=== PATIENT | female | born 1940 | race Caucasian/White ===

== ENCOUNTER 2023-05-10 09:35 | Day surgery (SDC) | payer MEDICARE, OTHER ==
[2023-05-08 11:41] LABS: BILIRUBIN,URINE NEGATIVE (Neg); CLARITY,URINE CLEAR (Clear); COLOR,URINE YELLOW (Yellow); GLUCOSE, URINE NEGATIVE (Neg); KETONES,URINE NEGATIVE (Neg); LEUKOCYTE ESTERASE ,URINE SMALL (Neg); NITRITES, URINE NEGATIVE (Neg); OCCULT BLOOD,URINE NEGATIVE (Neg); PROTEIN,URINE NEGATIVE (Neg); UROBILINOGEN,URINE 0.2 E.U/dL (0.2-1.0)
[2023-05-08 11:42] LABS: BASOPHILS # (AUTO) 0.1 X10'3 (0-0.2); BASOPHILS % (AUTO) 0.5 % (0-1); EOSINOPHILS # (AUTO) 0.1 X10'3 (0-0.9); EOSINOPHILS % (AUTO) 0.8 % (0-6); LYMPHOCYTES # (AUTO) 2.7 X10'3 (1.1-4.8); LYMPHOCYTES % (AUTO) 21.8 % (21-51); MEAN CORPUSCULAR HGB CONC 32.4 g/dL (33.0-36.5); MEAN CORPUSCULAR VOLUME 83.2 FL (78-98); MEAN PLATELET VOLUME 8.2 FL (7.4-10.4); MONOCYTES # (AUTO) 0.9 X10'3 (0-0.9); MONOCYTES % (AUTO) 7.1 % (2-12); NEUTROPHILS # (AUTO) 8.8 X10'3 (1.8-7.7); NEUTROPHILS % (AUTO) 69.8 % (42-75); PRE OP HEMATOCRIT 39.2 % (35.0-45.0); PRE OP HEMOGLOBIN 12.7 g/dL (12.0-16.0); PRE OP PLATELET COUNT 225 X10'3 (140-440); PRE OP WHITE BLOOD COUNT 12.6 10'3 (4.8-10.8); RED BLOOD COUNT 4.72 X10'6 (4.20-5.60); RED CELL DISTRIBUTION WIDTH 14.7 % (11.5-14.5)
[2023-05-08 11:43] LABS: UA COLLECTION TYPE CLN CATCH MIDSTREAM
[2023-05-08 11:48] LABS: BACTERIA,URINE FEW /HPF (Neg); RBC,URINE NONE SEEN /HPF (0-2)
[2023-05-08 11:51] LABS: MUCUS STRANDS FEW /LPF (Neg); SQUAMOUS EPITHELIAL CELL,UR MODERATE /LPF (FEW); TRANSITIONAL EPI CELLS,URINE FEW /HPF; WBC CLUMPS,URINE FEW /HPF (NEGATIVE)
[2023-05-08 11:56] LABS: ALBUMIN/GLOBULIN RATIO 1.1 (1.1-1.5); ALKALINE PHOSPHATASE 91 IU/L (46-116); CALCIUM 10.2 MG/DL (8.5-10.1); CHLORIDE 103 MMOL/L (99-107); CREATININE 0.85 MG/DL (0.40-0.90); PRE OP ALT 42 U/L (30-65); PRE OP ANION GAP 8 (8-16); PRE OP AST 32 U/L (10-37); PRE OP BILIRUB, TOTAL 0.7 MG/DL (0.0-1.0); PRE OP GLUCOSE 98 MG/DL (70-104); PRE OP POTASSIUM 3.8 MMOL/L (3.4-5.1); PRE OP SODIUM 139 MMOL/L (135-145); TOTAL CARBON DIOXIDE 27.7 MMOL/L (24-32); TOTAL PROTEIN 7.6 G/DL (6.4-8.2); eGFR 64 ML/MIN
[2023-05-08 12:12] LABS: BLOOD UREA NITROGEN 12 MG/DL (7-18); BUN/CREATININE RATIO 14.1 (10.0-20.0)
[~2023-05-10] VITALS: Ht 167.6 cm; Wt 71.6 kg
[2023-05-10] VITALS (13 sets, daily range): BP systolic 15–160; BP diastolic 57–77; PULSE 58–73; RESP 12–17; TEMP 98.3; O2SAT 95–100
[~2023-05-10 09:35] MED LIST: ALD25T PO; ATOR-2 PO; BENA40TA73 PO; CALCIUM; CHOL4POW4 PO; CLOP75TA34 PO; ECHINACEA; L-GLUTAMINE; MARSHMALLOW ROOT; NITR0.4T48 SL; VIT C; VITAMIN D3; cefazolin 2gm/D5W 100mL 100 ML IV ONE; famotidine 20mg tablet PO ONE; ringers solution, lacted 1,000 ML IV SCH
[2023-05-10] MEDS ORDERED: BUPIVAcaine/PF 2.5 mg/ml (0.25%) 30ml vial ONE (12:17)
[2023-05-10] MEDS ORDERED: sevoflurane 250ml liquid IH ONE (12:37)
[2023-05-10] MEDS ORDERED: fentaNYL/PF 50MCG/1 ML 2ML syringe ONE (12:37)
[2023-05-10] MEDS ORDERED: midazolam 1 mg/ML 2ml injection ONE (12:38)
[2023-05-10] MEDS ORDERED: rocuronium 10mg/ml inj IV ONE (12:38)
[2023-05-10] MEDS ORDERED: LIDOcaine 2% (20mg/ml) 5ml vial ONE (12:38)
[2023-05-10] MEDS ORDERED: propofol inj 20 ML IV ONE (12:38)
[2023-05-10] MEDS ORDERED: ondansetron/PF 4mg/2ml inj ONE (12:39)
[2023-05-10] MEDS ORDERED: dexamethasone sod phosphate 4mg/ml inj. ONE (12:39)
[2023-05-10] MEDS ORDERED: proCHLORperazine 10 MG/2 ml inj IV PRN (13:10)
[2023-05-10] MEDS ORDERED: morphine 2 MG/ML inj. syringe IV PRN (13:10)
[2023-05-10] MEDS ORDERED: ringers solution, lacted 1,000 ML IV SCH (13:10)
[2023-05-10] MEDS ORDERED: ondansetron/PF 4mg/2ml inj IV PRN (13:10)
[2023-05-10] MEDS ORDERED: morphine 4 MG/ML inj SYRINge IV PRN (13:10)
[2023-05-10] MEDS ORDERED: meperidine/PF 25mg/ml syringe IV PRN ×3 (13:10)
[2023-05-10] MEDS ORDERED: acetaminophen 1,000mg/100ml IV 100 ML IV ONE (13:52)
--- NOTE | 2023-05-10 14:06 | NUR ---
Received from OR via [facility] TO [facility], accompanied by Anesthesiologist DR SON and report given by Anesthesiolgist. PT PRESENTS WITH PIV 20G RIGHT FOREARM , ABD LAP SITESX3 CDI, SPO2 100% 6L MASK, LR RUNNING AT 100MLS/HR, PT PAIN 0/10, VSS. Addendum: 05/10/23 at 1417 by Cesilia Joshua RN, RN Amended: Links added.
--- NOTE | 2023-05-10 15:26 | NUR ---
DC HOME: ALL DISCHARGE CRITERIA HAS BEEN MET. VSS, PAIN AT TOLERABLE LEVEL. ABLE TO SAFELY AMBULATE AND TRANSFER SELF. IV TAKEN OUT WITHOUT ANY COMPLICATIONS. ALL DISCHARGE INSTRUCTIONS COVERED WITH PATIENT AND ALL QUESTIONS ANSWERED. PATIENT TAKEN OUT VIA WHEELCHAIR TO PERSONAL VEHICLE WHERE FAMILY/FRIEND DROVE PATIENT HOME. Addendum: 05/10/23 at 1639 by Cesilia Joshua RN, RN Amended: Links added.
== END 2023-05-10 15:26 | disposition home or self-care (01) ==
LOC: PAS 09:35
PROVIDERS: ATTEND Surgery
DX: K41.30 Unilateral femoral hernia, with obstruction, without gangrene, not specified as recurrent (principal); K42.9 Umbilical hernia without obstruction or gangrene; I10 Essential (primary) hypertension; I25.2 Old myocardial infarction; E78.5 Hyperlipidemia, unspecified; K58.9 Irritable bowel syndrome, unspecified; Z79.899 Other long term (current) drug therapy; Z85.3 Personal history of malignant neoplasm of breast; Z86.718 Personal history of other venous thrombosis and embolism; Z98.890 Other specified postprocedural states; Z90.710 Acquired absence of both cervix and uterus; Z90.12 Acquired absence of left breast and nipple; Z72.89 Other problems related to lifestyle; Z87.891 Personal history of nicotine dependence; Z79.01 Long term (current) use of anticoagulants; Z95.5 Presence of coronary angioplasty implant and graft; Z95.820 Peripheral vascular angioplasty status with implants and grafts; Z88.0 Allergy status to penicillin; Z83.3 Family history of diabetes mellitus; Z82.3 Family history of stroke
CPT/HCPCS: 36415; 49591; 49659; 80053; 81001; 82948; 85025; 87088; 93005; C1781; J0131; J0690; J1100; J2250; J2405; J2704; J3010; J3490; J7030; J7120; Z7506; Z7508; Z7512; A4215; A4618; C1758